=== PATIENT | female | born 1965 | race Caucasian/White ===

== ENCOUNTER 2025-05-22 18:38 | Emergency (ER) | payer OTHER, MEDICARE, SELFPAY ==
[2025-05-22 18:52] VITALS: BP 141/96; PULSE 91; RESP 16; TEMP 35.9; O2SAT 98
--- NOTE | 2025-05-22 19:03 | ED_ITS ---
HPI - Eye Problem General Chief complaint: Eye Problems Stated complaint: Left Eye Problem Time Seen by Provider: 05/22/25 19:03 Source: patient, RN notes reviewed and old records reviewed Mode of arrival: ambulatory Limitations: no limitations History of Present Illness HPI Narrative: 59 year old female with complaints of redness and mucous discharge starting to left eye today around 1600 today with no trauma to her eye. Patient reports no complaints of sinus congestion or drainage or URI symptoms no fever noted. chief complaint: eye redness Onset (ago): hour(s) (1600 today) Onset description: sudden Duration: constant Location: left eye Eye Symptoms: redness and discharge Severity: moderate Treatments Prior to Arrival: none Related Data Home Medications ?Medication ?Instructions ?Recorded ?Confirmed ?Last Taken ?Type atorvastatin 80 mg tablet mg 05/22/25 Unknown History brimonidine 0.33 % topical gel topical 05/22/25 Unkno wn History with pump bupropion HCl 150 mg tablet,12 hr mg PO 05/22/25 Unkn own History sustained-release buspirone 5 mg tablet mg 05/22/25 Unknown History metformin 500 mg tablet,extended mg PO 05/22/25 Unkno wn History release 24 hr metoprolol succinate 25 mg mg PO 05/22/25 Unknown His tory tablet,extended release 24 hr midodrine 5 mg tablet mg 05/22/25 Unknown History pantoprazole 20 mg tablet,delayed mg PO 05/22/25 Unkn own History release sertraline 100 mg tablet mg 05/22/25 Unknown History valacyclovir 1 gram tablet mg 05/22/25 Unknown Histor y Allergies Allergy/AdvReac Type Severity Reaction Status Date / Time doxycycline Allergy Intermediate Itching Verified 05/22/25 18:57 Review of Systems Review of Systems: CONSTITUTIONAL: Denies fever, chills, or sweats. EYES: Denies visual changes. Reports redness,, irritation, discharge.to left eye with no change in vision or sharp pain, states some burning sensation to left eye ENT: Denies rhinorrhea, congestion, sore throat, or otalgia. CARDIOVASCULAR: Denies chest pain, palpitations, or edema. RESPIRATORY: Denies cough or dyspnea. SKIN: Denies rash or itching. NEUROLOGIC: Denies headache All systems reviewed & are unremarkable except as noted in HPI and below PMFSH Past Medical History Medical History (Updated 05/23/25 @ 21:22 by Yanet Neff APRN) Hypertension Anxiety and depression GERD (gastroesophageal reflux disease) Surgical History Surgical History (Updated 05/23/25 @ 21:16 by Yanet Neff APRN) Previous section History of carpal tunnel release History of cholecystectomy History of lung surgery left lobectomy Social History Social History (Updated 05/23/25 @ 21:18 by Yanet Neff APRN) Smoking packs per day: 1 Smoking cigarettes per day: 20.0 Years smoked: 10 Smoking pack-years: 10.00 Smoking status: Former smoker Tobacco type: cigarettes Alcohol intake: current Alcohol use details: rare social Substance use type: does not use Living arrangements: with family Gender identity (if verbalized by the patient): Female Comments At time of signature, agree with nursing past medical, surgical, social and family history. There is no relevant family history pertinent to the presenting complaint Exam Narrative: GENERAL: Well-appearing, well-nourished, and in no acute distress. HEAD: Normocephalic, atraumatic. EYES: PERRLA and EOMI. Upper and lower eyelids unremarkable. No periorbital cellulitis noted. Sclera and conjunctivae injected left eye with mucoid drainage and increased tearing ENT: Nares clear, no rhinorrhea or epistaxis. Mucous membranes moist. NECK: Supple.no lymphadenopathy CHEST: Clear to auscultation. No respiratory distress.SAO2 98% on room air HEART: Regular rate and rhythm. No murmur heard. Normal peripheral pulses. SKIN: Warm, dry, no rash. NEURO: No focal deficits. Alert and oriented x3. Course Course Level of Care: Express Care Visit Vital Signs Vital signs: Vital Signs Temperature 35.9 C L 05/22/25 18:52 Pulse Rate 91 05/22/25 18:52 Respiratory Rate 16 05/22/25 18:52 Blood Pressure 141/96 H 05/22/25 18:52 Pulse Oximetry 98 05/22/25 18:52 Oxygen Delivery Room Air 05/22/25 18:52 Temperature 35.9 C L 05/22/25 18:52 Pulse Rate 91 05/22/25 18:52 Respiratory Rate 16 05/22/25 18:52 Blood Pressure 141/96 H 05/22/25 18:52 Pulse Oximetry 98 05/22/25 18:52 Oxygen Delivery Room Air 05/22/25 18:52 reviewed MDM MDM Narrative Medical decision making narrative: Patient has redness burning sensation and mucoid drainage from left eye with treat with ofloxacin eye drop sent to patient's pharmacy of choice. Patient is appropriate for outpatient care and follow up.Patient is aware of diagnosis, understands and agrees to treatment plan. Anticipatory guidance given. Patient agrees to follow-up as directed and is aware of reasons to seek care at the emergency department. Portions of this record may have been created with voice recognition software Differential Diagnosis Differential Diagnosis: Differential diagnostic considerations for eye problems include corneal abrasion, conjunctivitis, acute iritis, hyphemia, periorbital cellulitis, subconjunctival hemorrhage, glaucoma, corneal ulcer, ruptured globe, foreign body in eye.? Critical Care Time Critical Care Time Critical Care Time: No Discharge Plan Discharge Clinical Impression: Conjunctivitis Qualifiers: Conjunctivitis type: acute Acute conjunctivitis type: unspecified Laterality: left Qualified Code(s): H10.32 - Unspecified acute conjunctivitis, left eye Patient Disposition: Home Condition: Stable Instructions: Antibiotic Form, Conjunctivitis (ED) Additional Instructions: Cold compresses to the eyes for comfort May need warm compresses to remove debris in the morning When cleaning the eyes used a washcloth in one direction then change washcloths or use a cotton ball in one direction and then his cotton balls Eyedrops as directed--may be more soothing if left in the refrigerator Do not share medicine--do not touch the eye with the medicine Tylenol or ibuprofen for pain Avoid screen time--television, computer, tablet or phone. Also no reading or driving Follow-up with PCP or solar maintenance technician as directed if no improvement 48 hours If redness starts to the right eye go ahead and use the eyedrops also Patient Language: Barb[place] Prescriptions: New ofloxacin 0.3 % drops See Rx Instructions .ROUTE .COMPLEX Qty: 10 0RF Rx Instructions: put 1-2 drps into affected eye(s) every 2-4 h x 2 days, then 1-2 drps 4 times/day days 3-7 No Action buspirone 5 mg tablet bupropion HCl 150 mg tablet sustained-release 12 hr PO atorvastatin 80 mg tablet valacyclovir 1 gram tablet sertraline 100 mg tablet midodrine 5 mg tablet pantoprazole 20 mg tablet,delayed release (DR/EC) PO metoprolol succinate 25 mg tablet extended release 24 hr PO metformin 500 mg tablet extended release 24 hr PO brimonidine 0.33 % gel with pump TOPICAL Follow-up/Referrals: Harms,Giovanny Sharp M.D. [Primary Care Provider] Time of Disposition: 19:18 Quality [place] Coma Scale Eyes: Open Verbal: Oriented and Alert Motor: Follows Commands [place] Coma Total Score: 15
== END 2025-05-22 19:22 | disposition home or self-care (01) ==
PROVIDERS: Emergency Provider Registered Nurse; PCP Family Medicine
DX: H10.32 Unspecified acute conjunctivitis, left eye (principal); I10 Essential (primary) hypertension; K21.9 Gastro-esophageal reflux disease without esophagitis; F41.9 Anxiety disorder, unspecified; F32.A Depression, unspecified; Z87.891 Personal history of nicotine dependence; Z90.2 Acquired absence of lung [part of]
CPT/HCPCS: 99213; G0463